=== PATIENT | female | born 1990 | race Caucasian/White ===

== ENCOUNTER 2018-05-09 13:24 | Emergency (ER) | payer OTHER ==
[~2018-05-09] VITALS: Ht 154.9 cm; Wt 44.9 kg
--- NOTE | 2018-05-09 13:31 | NUR ---
PT A/OX4, PRESENTS TO THE ER C/O ABD PAIN, NON-PROVOKED, SHARP AND CRAMPING IN QUALITY, DOES NOT RADIATE, 9/10, CONSTANT. ABD NON-DISTENDED, ABD SOUNDS ACTIVE IN ALL 4 QUADRANTS, SOFT ON PALPATION. SECONDARY REPORT: NAUSEA PT DENIES C/P, SOB, DIZZINESS, HEADACHE.
[2018-05-09] MEDS ORDERED: ONDANSETRON 4 MG/2 ML VIAL ONE (13:44)
[2018-05-09] MEDS ORDERED: HYDROMORPHONE 1 MG/1 ML DISP.SYRIN ONE (13:44)
[2018-05-09] MEDS ORDERED: IV NORMAL SALINE 1000 ML BAG IV ONE (13:45)
[2018-05-09] MEDS ORDERED: HYDROMORPHONE 1 MG/1 ML DISP.SYRIN IV ONE (13:45)
[2018-05-09] MEDS ORDERED: ONDANSETRON 4 MG/2 ML VIAL IV ONE (13:45)
[2018-05-09 13:57] LABS: BASOPHILS # (AUTO) 0.1 K/uL (0.0-8.0); BASOPHILS % (AUTO) 1.2 % (0.0-2.0); EOSINOPHILS # (AUTO) 0.1 K/uL (0.0-0.7); EOSINOPHILS % (AUTO) 0.9 % (0.0-7.0); HEMATOCRIT 41.9 % (31.2-41.9); HEMOGLOBIN 14.3 g/dL (10.9-14.3); LYMPHOCYTES # (AUTO) 1.5 K/uL (20.0-40.0); LYMPHOCYTES % (AUTO) 20.6 % (20.5-51.5); MEAN CORPUSCULAR HEMOGLOBIN 30.4 uug (24.7-32.8); MEAN CORPUSCULAR HGB CONC 34 g/dL (32.3-35.6); MEAN CORPUSCULAR VOLUME 89.1 fL (75.5-95.3); MONOCYTES # (AUTO) 0.3 K/uL (2.0-10.0); MONOCYTES % (AUTO) 3.9 % (0.0-11.0); NEUTROPHILS # (AUTO) 5.5 K/uL (1.8-8.9); NEUTROPHILS % (AUTO) 73.4 % (38.5-71.5); PLATELET COUNT (AUTO) 214 K/uL (179-408); WHITE BLOOD COUNT (AUTO) 7.5 K/uL (3.8-11.8)
[2018-05-09 13:58] LABS: *BILIRUBIN,URIN NEGATIVE (NEGATIVE); *BLOOD, URINE 2+ (NEGATIVE); *CLARITY,URINE CLEAR (CLEAR); *COLOR,URINE YELLOW (YELLOW); *KETONES,URINE 2+ (NEGATIVE); *UROBILINOGEN,URINE 0.2 E.U./dl (NORMAL); LEUKOCYTE ESTERASE ,URINE NEGATIVE (NEGATIVE); NITRITE, URINE NEGATIVE (NEGATIVE); PH,URINE 7.5 (5.0-8.0); UGLUCOSE NEGATIVE (NEGATIVE)
[2018-05-09 14:04] LABS: BACTERIA,URINE FEW /HPF (NONE SEEN); RBC,URINE 0-3 /HPF (0-3); SQUAMOUS EPITHELIAL CELL,UR FEW /HPF (NONE SEEN); WBC,URINE 0-3 /HPF (0-3)
[2018-05-09 14:07] LABS: CREATININE 0.7 mg/dL (0.6-1.3); POTASSIUM 3.8 mmol/L (3.5-5.1)
[2018-05-09 14:21] LABS: BILIRUBIN,DIRECT 0.1 mg/dL (0.0-0.2); BILIRUBIN,TOTAL 0.5 mg/dL (0.2-1.0); TOTAL PROTEIN, SERUM 7.5 g/dL (6.4-8.2)
--- NOTE | 2018-05-09 14:29 | NUR ---
Patient discharged to home in stable conditon. Written and verbal after care instructions given. Patient verbalizes understanding of instructions. ALL BELONGINGS W/ PT. PT SELF-AMBULATED W/O DIFFICULTY. 20G IV ACCESS IN L AC REMOVED PRIOR TO D/C - INNER CANNULA INTACT. PT WILL BE DRIVEN HOME BY SPOUSE IN PRIVATE VEHICLE.
[2018-05-09 14:35] VITALS: BP 123/77
== END 2018-05-09 14:36 | disposition home or self-care (01) ==
LOC: ER 13:24
DX: N94.6 Dysmenorrhea, unspecified (principal)
CPT/HCPCS: 36415; 80048; 80076; 81001; 83690; 84702; 85025; 96374; 96375; 99283; J1170; J2405; A4663; J7030

== ENCOUNTER 2018-09-24 18:23 | Emergency (ER) | payer OTHER ==
[~2018-09-24] VITALS: Ht 152.4 cm; Wt 42.6 kg
--- NOTE | 2018-09-24 18:54 | NUR ---
MACARENA SANCHEZ AT BEDSIDE FOR MSE.
--- NOTE | 2018-09-24 19:08 | NUR ---
SHIFT REPORT GIVEN TO AISLINN Bee RN.
[2018-09-24] MEDS ORDERED: HYDROCODONE/APAP 5-325MG TABLET ONE (19:13)
[2018-09-24] MEDS ORDERED: ONDANSETRON ODT 4 MG TAB.RAPDIS ONE (19:13)
[2018-09-24] MEDS ORDERED: ONDANSETRON ODT 4 MG TAB.RAPDIS SL ONE (19:15)
[2018-09-24] MEDS ORDERED: HYDROCODONE/APAP 5-325MG TABLET PO ONE (19:15)
--- NOTE | 2018-09-24 19:37 | NUR ---
Felisha pemberton in ED - 09/24/18 at 1938 by MIYA Patient transported to Radiology for lumbar xray, in stable condition.
--- NOTE | 2018-09-24 21:05 | NUR ---
Patient discharged to home in stable conditon WITH TAKING PATIENT HOME. Written and verbal after care instructions given. Patient verbalizes understanding of instructions. WALKED OUT OF ER WITH NO DISTRESS NOTED
[2018-09-24 21:06] VITALS: BP 110/75
== END 2018-09-24 21:07 | disposition home or self-care (01) ==
LOC: ER 18:23
DX: M25.562 Pain in left knee (principal)
CPT/HCPCS: A4663; Q0162